=== PATIENT | female | born 1950 | race Two or more races ===

== ENCOUNTER → 2024-05-15 | Emergency (ER) | payer OTHER ==
[~2024-05-15] VITALS: Ht 157.5 cm; Wt 68.0 kg
[2024-05-15 07:50] VITALS: PULSE 91; RESP 17; O2SAT 95
[2024-05-15 08:09] LABS: Basophils # (auto) 0.1 10 ^3/uL (0-0.2); Basophils % (auto) 0.7 % (0.0-2.0); Eosinophils # (auto) 0.1 10 ^3/uL (0-0.8); Hemoglobin 12.8 g/dL (12.2-16.2); Lymphocytes # (auto) 1.3 10 ^3/uL (0.4-5.4); Mean Corpuscular Hemoglobin 26.5 pg (28.0-32.0); Monocytes # (auto) 0.4 10 ^3/uL (0-1.3); Neutrophils # (auto) 6.4 10 ^3/uL (1.6-8.6); White Blood Cell 8.3 10^3/uL (4.4-10.8)
[2024-05-15 08:10] LABS: Eosinophils % (auto) 1.7 % (0.0-7.0); Hematocrit 39.3 % (36.0-46.0); Lymphocytes % (auto) 15.5 % (10.0-50.0); Mean Corpuscular Hgb Conc. 32.6 g/dL (32.0-36.0); Mean Corpuscular Volume 81.3 fL (80.0-100.0); Monocytes % (auto) 5.1 % (0.0-12.0); Red Blood Cells 4.83 10^6/uL (4.0-5.20); Red Cell Distribution Width 14.9 % (11.8-14.3)
[2024-05-15 08:15] LABS: Chloride 107 mmol/L (98-107); Potassium 3.6 mmol/L (3.5-5.1); Sodium 141 mmol/L (136-145)
[2024-05-15 08:17] LABS: Anion Gap 7 (5-15); Calcium 9.4 mg/dL (8.7-10.4); Carbon Dioxide 27 mmol/L (20-30)
[2024-05-15 08:18] VITALS: BP 171/98; PULSE 86; RESP 16; TEMP 97.9; O2SAT 99
[2024-05-15 08:20] LABS: Urine Bacteria None Seen /hpf (None Seen); Urine WBC None Seen /hpf (0 - 5)
[2024-05-15 08:22] LABS: BUN/Creatinine Ratio 19.8 (10.0-20.0); Blood Urea Nitrogen 16 mg/dL (9-23); Glucose 159 mg/dL (74-106)
[2024-05-15] MEDS: cloNIDine HCL 0.1 MG TAB PO ONE (08:23)
[2024-05-15 08:29] LABS: Urine Blood Negative /uL (Negative); Urine Clarity Clear (Clear); Urine Protein, UAD Negative (Negative); Urine Specific Gravity 1.005 (1.001-1.035); Urine Urobilinogen Normal (Negative)
[2024-05-15 08:30] LABS: Urine Color Light-Yellow (Yellow)
== END | disposition left against medical advice (07) ==
LOC: EDBD 07:32 → ER 07:33
DX: M79.18 Myalgia, other site (principal); R73.9 Hyperglycemia, unspecified; I10 Essential (primary) hypertension; R07.89 Other chest pain; I25.2 Old myocardial infarction
CPT/HCPCS: 36415; 71101; 80048; 81001; 84484; 85025